=== PATIENT | female | born 1965 | race Caucasian/White ===

== ENCOUNTER → 2016-08-07 | Outpatient (CLI) | payer BC ==
[~2016-08-07] MED LIST: BUPR200T2 PO; CLB/200 PO; DILT-121 PO; LAMO150T32 PO; LEVO100T7 PO; TRAZ100T29 PO; ZOLP5TAB PO
--- NOTE | 2016-08-07 08:43 | DIAGNOSTIC IMAGING REPORT ---
RIGHT HEEL MIN 2 VIEWS CLINICAL HISTORY: M79.671 Chronic heel pain, [id number] Right pain COMPARISON: None. DISCUSSION: Small heel spur. Ossification Achilles tendon insertion. All remaining osseous structures are unremarkable. IMPRESSION: Small heel spur. Mild ossification of the Achilles tendon insertion Electronically signed by: Fan Olsen M.D. 08/07/2016 8:42 AM Dictated Date/Time: 08/07/2016 8:41 AM
== END | disposition home or self-care (01) ==
LOC: C.RAD1850 08:29
PROVIDERS: ATTEND Internal Medicine
DX: M79.671 Pain in right foot (principal); M77.31 Calcaneal spur, right foot

== ENCOUNTER → 2017-02-09 | Outpatient (CLI) | payer BC | END | disposition home or self-care (01) | LOC: C.PAPS 14:09 | PROVIDERS: ATTEND Obstetrics & Gynecology | DX: Z01.419 Encounter for gynecological examination (general) (routine) without abnormal findings (principal); R87.610 Atypical squamous cells of undetermined significance on cytologic smear of cervix (ASC-US) ==

== ENCOUNTER → 2017-03-12 | Outpatient (CLI) | payer BC | END | disposition home or self-care (01) | LOC: C.PATHSPEC 17:49 | PROVIDERS: ATTEND Obstetrics & Gynecology | DX: R87.610 Atypical squamous cells of undetermined significance on cytologic smear of cervix (ASC-US) (principal); R87.810 Cervical high risk human papillomavirus (HPV) DNA test positive ==

== ENCOUNTER → 2017-12-12 | Outpatient (CLI) | payer OTHER ==
[~2017-12-12] MED LIST changes: +LAMO150T PO; -LAMO150T32 PO
--- NOTE | 2017-12-13 08:09 | MAMMOGRAPHY REPORT ---
BILATERAL DIGITAL SCREENING MAMMOGRAM TOMOSYNTHESIS WITH CAD: 12/12/2017 TECHNIQUE: The study was acquired using full field digital technology and interpreted from soft copy. Tomosynthesis (3D imaging) was done in the CC and MLO projections. A C-view reconstruction was then done. Current study was also evaluated with a Computer Aided Detection (CAD) system. COMPARISON: Comparison is made to exams dated: 10/15/2015 mammogram, 03/23/2014 mammogram, 03/12/2014 mammogram, 03/11/2013 mammogram, 10/19/2011 mammogram, and 10/13/2010 mammogram - [facility]. BREAST COMPOSITION: There are scattered areas of fibroglandular density in both breasts. FINDINGS: A linear scar marker was placed overlying the medial left breast. However, the patient had a prior excision of a left 2:00 breast mass, which is the lateral breast. There are punctate densit ies and expected architectural distortion in the upper outer left breast, denoting the area of prior excision. No suspicious mass, architectural distortion or cluster of microcalcifications is seen. IMPRESSION: ACR BI-RADS CATEGORY 1: NEGATIVE There is no mammographic evidence of malignancy. A 1 year screening mammogram is recommended.( [id number]) The patient will receive written notification of the results. Approximately 10% of breast cancers are not detected with mammography. A negative mammographic report should not delay biopsy if a clinically suggestive mass is present. Gudelia Silva M.D. ay/:12/12/2017 08:23:23 Marketing Communications Manager: RT Radha(Chris)(M), [facility] letter sent: Normal 1/2 BI-RADS Code: ACR BI-RADS Category 1: Negative
== END | disposition home or self-care (01) ==
LOC: C.MAMM 07:05
PROVIDERS: ATTEND Internal Medicine
DX: Z12.31 Encounter for screening mammogram for malignant neoplasm of breast (principal)